=== PATIENT | female | born 1965 | race Caucasian/White ===

== ENCOUNTER 2019-11-01 | Emergency (ER) | payer BC ==
[2019-11-01] MEDS ORDERED: ORPHENADRINE100 MG PO (18:06)
== END 2019-11-01 18:20 | disposition home or self-care (01) | DRG 605 ==
DX: S00.83XA Contusion of other part of head, initial encounter (principal); S00.03XA Contusion of scalp, initial encounter; M54.5 Low back pain; I10 Essential (primary) hypertension; W01.198A Fall on same level from slipping, tripping and stumbling with subsequent striking against other object, initial encounter; Y92.009 Unspecified place in unspecified non-institutional (private) residence as the place of occurrence of the external cause

== ENCOUNTER 2022-12-10 08:20 | Emergency (ER) | payer BC ==
[~2022-12-10] VITALS: Ht 167.6 cm; Wt 84.0 kg
[~2022-12-10 08:20] MED LIST: ORPHENADRINE100 MG PO
[2022-12-10 08:33] VITALS: BP 174/107
[2022-12-10] MEDS ORDERED: BACTRIM DS1 TAB PO (08:39)
[2022-12-10 08:46] VITALS: BP 171/83
== END 2022-12-10 09:00 | disposition home or self-care (01) | DRG 603 ==
LOC: ED 08:20
PROC: 0H9GXZZ Drainage of Left Hand Skin, External Approach (ICD-10-PCS; principal; 2022-12-10)
DX: L03.012 Cellulitis of left finger (principal); I10 Essential (primary) hypertension; F32.A Depression, unspecified

== ENCOUNTER 2023-03-06 14:02 | Emergency (ER) | payer BC ==
[~2023-03-06] VITALS: Ht 167.6 cm; Wt 87.0 kg
[2023-03-06] VITALS (7 sets, daily range): BP systolic 121–140; BP diastolic 64–84
[~2023-03-06 14:02] MED LIST changes: +BACTRIM DS1 TAB PO
[2023-03-06] MEDS ORDERED: HYDROCHLOROT25 MG PO (14:32)
[2023-03-06] MEDS ORDERED: DULOXETINE HCL60 MG (14:32)
[2023-03-06 14:43] LABS: BASO% 0.6 % (0-3); EOS% 2.8 % (0-8); HEMATOCRIT 41.5 % (37.0-47.0); HEMOGLOBIN 13.4 g/dl (12.0-16.0); LYMPH% 21.4 % (15-41); MEAN CORPUSCULAR HGB 29.7 pG CALC (26.0-32.0); MEAN CORPUSCULAR HGB CONC 32.3 g/dL CAL (32.0-36.0); MONO% 5.1 % (2-13); NEUT# 5.09 thou/uL (2.00-7.15); NEUT% 70.1 % (42-76); RED BLOOD COUNT 4.51 mill/uL (4.20-5.60); RED CELL DISTRI WIDTH 12.8 % (11.5-15.5)
[2023-03-06 15:10] LABS: ALBUMIN 4.1 g/dL (3.2-5.0); ALKALINE PHOSPHATASE 110 u/l (38-126); ANION GAP 13 (6-22 (CALC)); BILIRUBIN, TOTAL 0.6 mg/dL (0.02-1.3); BUN 23 mg/dL (7-17); BUN/CREATININE RATIO 25 (12-20 (CALC)); CARBON DIOXIDE 23 mmol/l (22-30); CHLORIDE 106 mmol/l (95-108); CREATININE 0.9 mg/dL (0.5-1.0); GFR FOR AFR.AMER. > 60 ML/MIN (>=60 (CALC)); GFR OTHER RACES > 60 ML/MIN (>=60 (CALC)); POTASSIUM 3.5 mmol/l (3.5-5.1); SGOT/AST 32 u/l (14-36); SODIUM 138 mmol/l (137-146)
== END 2023-03-06 15:48 | disposition home or self-care (01) | DRG 312 ==
LOC: ED 14:02
PROVIDERS: Family Medicine
DX: R55 Syncope and collapse (principal); I10 Essential (primary) hypertension; F32.A Depression, unspecified